=== PATIENT | female | born 1990 | race Caucasian/White ===

== ENCOUNTER 2022-04-16 08:01 | Outpatient (CLI) | payer BC, SELFPAY ==
--- NOTE | 2022-04-16 08:22 | CRLHL7_ITS ---
For Patients: As a result of the Century Cures Act, medical imaging exams and procedure reports are released immediately into your electronic medical record. You may view this report before your referring provider. If you have questions, please contact your health care provider. INDICATION: Hypertension, COVID positive in . COMPARISON: OB ultrasound 04/09/2022. TECHNIQUE: Real time villegas scale imaging of the fetus was performed without non-stress testing. FINDINGS: Sonographic imaging demonstrates a single living intrauterine gestation. The fetus demonstrates a regular cardiac rate of 128 beats per minute. The fetus has a cephalic orientation. The placenta lies posteriorly. The amniotic fluid volume appears normal with single deepest pocket measuring 5.0 cm (2/2). The fetus was active (2/2). The fetus demonstrated normal breathing movements (2/2). There was normal flexion and extension of the trunk and extremities (2/2). IMPRESSION: Normal biophysical profile score 8 out of 8. Dictated by Jacquie Cornelius MD @ 04/16/2022 5:50:00 PM (Electronically Signed)
== END 2022-04-16 08:02 | disposition home or self-care (01) ==
LOC: US 08:02
PROVIDERS: Visit Provider Obstetrics & Gynecology
DX: O10.919 Unspecified pre-existing hypertension complicating pregnancy, unspecified trimester (principal); Z3A.35 35 weeks gestation of pregnancy
CPT/HCPCS: 76819

== ENCOUNTER 2022-04-18 11:06 | Outpatient (CLI) | payer BC, SELFPAY ==
[2022-04-18 11:29] VITALS: BP 112/77; PULSE 80
[2022-04-18 11:30] VITALS: PULSE 75; RESP 18; TEMP 37; O2SAT 98
--- NOTE | 2022-04-18 16:19 | PC.OBNST ---
NST Note NST Note Start: 04/18/22 11:10 Freq: ONCE Status: Discharge Protocol: Document 04/18/22 12:00 UMAIR (Rec: 04/18/22 15:09 JRAlisia [id number]) NST Note 2 Para (# of births) 1 EDC 05/21/22 High Risk Factors High Blood Pressure - Preexisting Patient Presented with Complaint(s) of Contractions/cramping Reactive Yes Appropriate for Gestational Age Yes ELY Neumann RN Date 04/18/22 Reactive Yes Appropriate for Gestational Age Yes ELY Levy RN Date 04/18/22 OB NST charge Yes Provider Evaluation of EFM Strip: Reactive: [] Appropriate for Gestational Age: [] Comments: Dr. Mayers reviewed EFM strip prior to discharge
== END 2022-04-18 12:00 | disposition home or self-care (01) ==
LOC: OB CLI 11:07 → OB 11:41
PROVIDERS: Visit Provider Obstetrics & Gynecology
DX: O16.3 Unspecified maternal hypertension, third trimester (principal); O98.513 Other viral diseases complicating pregnancy, third trimester; U07.1 COVID-19; Z3A.35 35 weeks gestation of pregnancy
CPT/HCPCS: 59025; 99211; 99213

== ENCOUNTER 2022-04-23 08:05 | Outpatient (CLI) | payer BC, SELFPAY | END 2022-04-23 08:06 | disposition home or self-care (01) | LOC: US 08:06 | PROVIDERS: Visit Provider Obstetrics & Gynecology | DX: O10.913 Unspecified pre-existing hypertension complicating pregnancy, third trimester (principal); O98.513 Other viral diseases complicating pregnancy, third trimester; U07.1 COVID-19; Z3A.35 35 weeks gestation of pregnancy ==

== ENCOUNTER 2022-04-23 08:13 | Outpatient (CLI) | payer BC, SELFPAY ==
--- NOTE | 2022-04-23 08:15 | CRLHL7_ITS ---
For Patients: As a result of the Century Cures Act, medical imaging exams and procedure reports are released immediately into your electronic medical record. You may view this report before your referring provider. If you have questions, please contact your health care provider. INDICATION: CHRONIC HTN, POSITIVE COVID IN TECHNIQUE: Real time villegas scale imaging of the fetus was performed. COMPARISON: 04/16/2022 FINDINGS: Sonographic imaging demonstrates a single living intrauterine gestation. Fetus demonstrates a regular cardiac rate of 131 beats per minute. Fetus has a vertex position. The placenta lies posteriorly. Amniotic fluid volume appears normal and there is a single deepest pocket of 5.8 cm. The estimated weight is 2617gm which lies at the 29th %. On the prior OB ultrasound dated 04/02/2022 the estimated weight was at the 14th percentile. BPD 13th percentile. HC 13 percent. AC 50th percentile. FL 13th percentile. The fetus was active and demonstrated normal breathing movements. There was normal flexion and extension of the trunk and extremities. IMPRESSION: Normal biophysical profile score 8/8. Sonographic gestational age 35 weeks 0 days and a sonographic due date 05/28/2022. Sonographic age 1 week behind the clinical age. Estimated weight 29th percentile. Abdominal circumference 50th percentile. Dictated by Mike Benson MD @ 04/23/2022 9:17:56 AM (Electronically Signed)
== END 2022-04-23 08:14 | disposition home or self-care (01) ==
LOC: US 08:14
PROVIDERS: Visit Provider Obstetrics & Gynecology
DX: O10.913 Unspecified pre-existing hypertension complicating pregnancy, third trimester (principal); O98.513 Other viral diseases complicating pregnancy, third trimester; U07.1 COVID-19; Z3A.35 35 weeks gestation of pregnancy
CPT/HCPCS: 76816; 76819

== ENCOUNTER 2022-04-23 10:17 | Outpatient (CLI) | payer BC, SELFPAY ==
[2022-04-23 11:46] LABS: Alanine Aminotransferase* 11 U/L (4-35); Aspartate Amino Transferase* 16 U/L (12-35); Blood Urea Nitrogen* 8 mg/dL (5-24); Creatinine* 0.5 mg/dL (0.5-1.5); Estimated Glomerular Filt Rate 126.93
[2022-04-23 12:55] LABS: Creatinine Urine 26.5 mg/dL; Total Protein Urine 8 mg/dL
[2022-04-24 10:07] LABS: Strep B DNA Probe NEGATIVE (Negative)
== END 2022-04-23 10:18 | disposition home or self-care (01) ==
PROVIDERS: Visit Provider Obstetrics & Gynecology
DX: O10.913 Unspecified pre-existing hypertension complicating pregnancy, third trimester (principal); O98.513 Other viral diseases complicating pregnancy, third trimester; U07.1 COVID-19
CPT/HCPCS: 82565; 84156; 84450; 84460; 84520; 87081; 87653

== ENCOUNTER 2022-04-24 11:29 | Outpatient (CLI) | payer BC, SELFPAY ==
[2022-04-24 11:43] VITALS: PULSE 84; O2SAT 99
[2022-04-24 11:48] VITALS: RESP 16; TEMP 37.1
[2022-04-24 11:56] VITALS: BP 117/68; PULSE 81
[2022-04-24 12:05] VITALS: BP 122/70; PULSE 92
[2022-04-24] MEDS: BETAMETHASONE SOD PHOS/ACETATE 6 MG/ML ML 12 MG IM (12:06)
[2022-04-24 12:55] LABS: Total Protein Urine 16 mg/dL
[2022-04-24 12:56] LABS: Creatinine Urine 82.1 mg/dL
--- NOTE | 2022-04-24 14:00 | PC.OBNST ---
NST Note NST Note Start: 04/24/22 11:34 Freq: ONCE Status: Active Protocol: Document 04/24/22 12:25 MMB (Rec: 04/24/22 13:59 MMB [id number]) NST Note 2 Para (# of births) 1 EDC 05/21/22 High Risk Factors High Blood Pressure - Preexisting Patient Presented with Complaint(s) of Other Other Complaints Scheduled NST/BP check/ Betamethasone Reactive Yes Appropriate for Gestational Age Yes ELY Pineda RN Date 04/24/22 Reactive Yes Appropriate for Gestational Age Yes ELY Corrales RN Date 04/24/22 OB NST charge Yes Provider Evaluation of EFM Strip: Reactive: [] Appropriate for Gestational Age: [] Comments:
== END 2022-04-24 12:25 | disposition home or self-care (01) ==
LOC: OB CLI 11:31 → OB 11:37
PROVIDERS: Visit Provider Obstetrics & Gynecology
DX: O11.3 Pre-existing hypertension with pre-eclampsia, third trimester (principal); Z3A.36 36 weeks gestation of pregnancy
CPT/HCPCS: 59025; 84156; J0702

== ENCOUNTER 2022-04-29 16:00 | Inpatient (IN) | payer BC, SELFPAY ==
[2022-04-29] VITALS (15 sets, daily range): BP systolic 120–153; BP diastolic 66–86; PULSE 83–114; RESP 16–18; TEMP 36.6–36.7; O2SAT 96–98; BMI 33.3
--- NOTE | 2022-04-29 17:04 | W.PM.LDBA ---
Subjective History of Present Illness Narrative: Patient is being admitted to Labor and Delivery for IOL for Preeclampsia without severe features superimposed upon chronic hypertension. She is a 32 year old at weeks gestation. Her full history and physical was dictated by Dr. Hardy on 04/23/22. Please see this for details. 1. Preeclampsia without severe features superimposed upon chronic hypertension, on no medications *Continue to monitor BPs at home. * BP 146 / 82 on 02/04/22, but reports normal at home.? To return for BP check in clinic and bring her home monitor at 26 weeks.? Start labetalol for any persistent elevations.? --150s / 80s on 04/23/22.? Began labetalol 100 mg BID.? Prot:cr 0.3 today.? *Start weekly testing at 32 weeks *Growth US every 4 weeks: 28, 32, 36 weeks --28 weeks:? IMPRESSION:? EFW 34%. AC 50%. ODILIA 16.3. ? --32wks 03/26/22: Vtx, BPP 8/8, SDP 3.7cm. EFW: 1735gms, 3 lb 13 oz, 19%.? BPD 22%, HC 9%, AC 26%, FL 19%. --36 weeks:? Cephalic, normal fluid, EFW 29% with all growth parameters within normal ranges.? BPP 05/24. --IOL scheduled for 37 0/7 weeks with NDP.? --Betamethasone 04/23 and 04/24/22 ? 2. Hx of preeclampsia, IOL at 37 weeks, denies need for medication.? Already taking baby aspirin.? Baseline preeclampsia labs collected. ?-Baseline preeclampsia labs:? 10/13/21: hgb 11.2, plts 341K, BUN 9, creatinine 0.5, uric acid ? 3.3, AST 20, ALT 16. Urine P/C 0.30. 24Hr urine protein: 230mg. ?- Repeat HELLP labs 02/03/22:? All normal 3.? Hx of Depression & anxiety.? Stopped medication about 6 years ago, remains stable at this time. 4. Covid positive 12/22/21. Out of quarantine 01/01/22. No additional testing required beyond that for chronic HTN. OB - H&P: Exam Physical Exam: Vital signs: Pulse BP Pulse Ox 105 H 134/86 96 04/29/22 16:30 04/29/22 16:30 04/29/22 16:35 Constitutional: Constitutional: no acute distress Routine HEENT Exam: Head: Present normal inspection Eye: Present normal appearance Routine Neck Exam: Neck: Present full ROM Routine Cardiovascular Exam: Cardiovascular: RRR Routine Exam: Perineum Description: Normal Detailed Labor and Delivery Exam: Patient Gravid: yes Dilation (cm): 1 Effacement (%): 70 Cervix position: posterior Consistency: soft Contraction frequency (min): 5 (3-5) Tachysystole: No Contraction intensity: Mild Fetus (Single): Station: -3 Monitor Accelerations: Present Monitor Decelerations: None Analytical Chemist Variability: Moderate (11-25) (6-25) Routine Extremities Exam: Extremities: Present full ROM Routine Back/Spine/Pelvis Exam: Back/Spine: full ROM Routine Neurological Exam: Present alert and oriented X3 Routine Psychiatric Exam: Present normal affect OB - Problem Based A/P Additional Plan (1) with pre-existing hypertension: Status: Acute (2) Encounter for induction of labor: Status: Acute Plan at 36.6 weeks gestation? GBS negative? ?complicated by preeclampsia without severe features superimposed upon chronic hypertension. Blood pressure 134/86 on admit. ?? PLAN:? 1. Blood pressure monitoring per unit policy.? 2. Plan for cook catheter placement followed by low dose Pitocin with Dr. Hardy on last visit. Reviewed options with patient and she is agreeable to cook placement and Pitocin.?Cook catheter placed at 1700. Low dose pitocin to be started at 0030. 3. Candidate for analgesia of choice. Planning epidural.? 4. Monitor blood pressures. Consider repeating labs if blood pressures are elevated.? 5. Anticipate ? 6. Continuous monitoring and IV placement per unit protocols. Delivery/Labor/Induction Plan Plan: induction Induction method: Intracervical balloon catheter (with plan for low dose pitocin at 0030.)
[2022-04-29 18:24] LABS: SARS PCR* POSITIVE SARS-CoV-2 (Negative)
[2022-04-29 20:37] LABS: Hematocrit 37.1 % (33.0-51.0); Hemoglobin* 12.6 gm/dL (12.0-16.0); Mean Corpuscular HGB Conc 34 gm/dL (32-36); Mean Corpuscular Hemoglobin 31 pg (26-34); Mean Corpuscular Volume 91 fL (80-100); Platelet Count* 257 K/uL (140-440); Red Blood Count 4.09 m/uL (4.00-5.20); White Blood Count* 12.38 K/uL (4.50-11.00)
[2022-04-29 20:40] LABS: Slide Review Reflex No
[2022-04-29 21:00] LABS: Alanine Aminotransferase* 15 U/L (4-35); Aspartate Amino Transferase* 20 U/L (12-35); Blood Urea Nitrogen* 17 mg/dL (5-24); Creatinine* 0.5 mg/dL (0.5-1.5); Est. Creatinine Clearance* 126.57; Estimated Glomerular Filt Rate 127 ml/min
[2022-04-30] VITALS (55 sets, daily range): BP systolic 90–151; BP diastolic 51–85; PULSE 72–102; RESP 15–20; TEMP 36.4–36.8; O2SAT 90–100
[2022-04-30] MEDS: LACTATED RINGERS 1000 ML 1,000 ML 125 ML IV ×2 (00:20→07:50)
[2022-04-30] MEDS: OXYTOCIN 30 unit/500 ML in NS 30 UNIT/500 ML BAG IVPB (00:25)
[2022-04-30] MEDS: hydrOXYzine pamoate 25 MG CAPSULE 100 MG PO (01:10)
[2022-04-30 07:08] LABS: Hematocrit 39.8 % (33.0-51.0); Hemoglobin* 13.3 gm/dL (12.0-16.0); Mean Corpuscular HGB Conc 33 gm/dL (32-36); Mean Corpuscular Hemoglobin 30 pg (26-34); Mean Corpuscular Volume 91 fL (80-100); Platelet Count* 250 K/uL (140-440); Red Blood Count 4.39 m/uL (4.00-5.20); White Blood Count* 13.01 K/uL (4.50-11.00)
[2022-04-30 07:21] LABS: Slide Review Reflex No
[2022-04-30 07:26] LABS: Aspartate Amino Transferase* 18 U/L (12-35); Creatinine* 0.5 mg/dL (0.5-1.5); Est. Creatinine Clearance* 126.57; Estimated Glomerular Filt Rate 127 ml/min
[2022-04-30 07:27] LABS: Alanine Aminotransferase* 15 U/L (4-35); Blood Urea Nitrogen* 16 mg/dL (5-24)
[2022-04-30] MEDS: PHENYLEPHRINE 100 MCG/ML SYRINGE IVP (09:05)
[2022-04-30] MEDS: ROPIVACAINE 0.2% 100 ml 100 ML 12 MG EPIDURAL (09:06)
[2022-04-30] MEDS: LIDOCAINE 2% (PF) 5 ML VIAL EPIDURAL (09:09)
--- NOTE | 2022-04-30 09:28 | P.ANBPRC_ITS ---
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 Saw genetic counselor. Does not exercise- walks with stroller daily , uook-vl-celr mom, 1 son Master of social work From [place] Non-smoker Social drinker (4-5/week), none during No recreational drug use. Smoking Status: Never smoker Meds Home Medications and Allergies Home Medications Medication Instructions Recorded Confirmed Type Lactobacillus acidophilus 100 mg PO QDAY 04/16/22 04/29/22 History aspirin 81 mg chewable tablet 1 tab PO DAILY tab 04/16/22 04/29/22 History ferrous sulfate 142 mg (45 mg mg PO DAILY 04/16/22 04/23/22 History iron) tablet,extended release prenat.vits,manuela,ymf-vecm-cnbfe 1 tab PO QDAY 04/16/22 04/29/22 History Allergies Allergy/AdvReac Type Severity Reaction Status Date / Time Sulfa Antibiotics Allergy Intermediate Rash Uncoded 04/23/22 09:23 Results Labs Labs: Laboratory Results - last 24 hr 04/29/22 04/29/22 04/29/22 16:26 20:30 20:30 WBC 12.38 H RBC 4.09 Hgb 12.6 Hct 37.1 MCV 91 MCH 31 MCHC 34 Plt Count 257 BUN Creatinine Estimated Creat Clear Estimated GFR AST ALT SARS-CoV-2 (PCR) POSITIVE SARS-CoV-2 A Blood Type AB Positive Antibody Screen NEGATIVE 0704/30/22 04/30/22 20:30 06:55 06:55 WBC 13.01 H RBC 4.39 Hgb 13.3 Hct 39.8 MCV 91 MCH 30 MCHC 33 Plt Count 250 BUN 17 16 Creatinine 0.5 0.5 Estimated Creat Clear 126.57 126.57 Estimated GFR 127 127 AST 20 18 ALT 15 15 SARS-CoV-2 (PCR) Blood Type Antibody Screen Vital Signs Vital Signs: Last Vital Signs Temp 98.1 F 04/30/22 08:05 Pulse 101 H 04/30/22 09:22 Resp 20 04/30/22 06:25 BP 99/59 L 04/30/22 09:22 Pulse Ox 99 04/30/22 09:25 Weight: 83.96 kg Height: 157.48 cm Anesthesia Procedures Epidural Insertion Patient Location: OB Start Time: 08:40 Stop Time: 09:20 Start Date: 04/30/22 Stop Date: 04/30/22 Reason for Block: procedure for pain Patient Position: sitting Performed By: Prieto Anthony Preanesthetic Checklist: site marked, risks and benefits discussed, monitors and equipment checked, timeout performed and anesthesia consent Prep: chlorhexidine gluconate Monitoring: blood pressure monitoring, continuous pulse oximetry and heart rate Approach: midline Vertebral Space: lumbar (1-5) Epidural Technique: SEAN air Needle Type: Tuohy needle Injection Technique: single-shot Needle gauge: 17 Needle Insertion Depth (cm): 7 Catheter Type: multi-orifice Catheter at skin depth (cm): 12 Test Dose Result: negative and lidocaine 1.5% with epinephrine 1 to 200,000
--- NOTE | 2022-04-30 10:24 | PM.OBPRCVD ---
Procedure Procedure Done: Global Narrative: The patient is a 32 year-old G 2 P 1 now 2 admitted on 04/29/2022 at 36 and 6/7 weeks gestation for induction of labor due to chronic hypertension with superimposed mild preeclampsia. Cervical exam on admission was 1 cm/50 % effaced/-3 station with membranes intact in vertex presentation. Contractions were every 6-9 minutes. heart rate demonstrated baseline 130s bpm with moderate variability, positive accelerations, negative decelerations; a category 1 tracing. GBS negative. Her blood type is Rh positive. AROM occurred at approximately 9:30 a.m. on small amount of clear fluid. Labor Analgesia: Epidural Pitocin: Yes Labor onset: 04/30/2022 at 4:00 a.m. Complete: 04/30/2022 at 9:47 a.m. Pushin04/30/2022 at 9:55 a.m. heart tones during second stage were: 130s baseline with moderate variability and accelerations between contractions. Sporadic variable decelerations with contractions. Extended deceleration to the 80s when the vertex was . At 10:06 a.m. a viable male delivered in vertex direct OA presentation over intact perineum via spontaneous vaginal delivery. There was a tight nuchal cord that was clamped and cut at the perineum. The was placed on maternal abdomen and was noted to have low tone and minimal respiratory effort. The baby's mouth was bulb suctioned and infant taken to the warmer for stabilization which occurred prior to the 1 minute . weight: 5 lb 9 oz. 9 at 1 minute and 9 at 5 minutes. Shoulder dystocia: No. Nuchal cord: Yes: See above . Placenta delivered spontaneously and complete at 10:12 a.m. with a 3 vessel cord. Complications: None. Mother and were stable after delivery. Laceration(s): None. Quantitative blood loss: 50 mL. Sponge and needles counts are correct. Mother and were stable at the time of this note. Eleanor is planning on breast feeding. The infant's name is John.
[2022-04-30] MEDS: IBUPROFEN 600 MG TABLET PO (19:40)
[2022-05-01 01:08] VITALS: BP 134/83; PULSE 95; RESP 16; TEMP 36.8
[2022-05-01 01:15] VITALS: BP 116/78
[2022-05-01 04:49] VITALS: BP 139/82; PULSE 72; RESP 16; TEMP 36.6; O2SAT 98
[2022-05-01 06:54] LABS: Hemoglobin* 12.5 gm/dL (12.0-16.0)
[2022-05-01 08:50] VITALS: BP 135/86; PULSE 75; RESP 16; TEMP 36.7; O2SAT 100
--- NOTE | 2022-05-01 08:52 | P.OBPN_ITS ---
OB - PN:Subj Subjective Time Seen by Provider: 08:52 Date Seen: 05/01/22 Patient comments OB post-: no complaints and pain well controlled [place] infant status: doing well [place] feeding status: exclusively OB - PN: Obj Exam Physical Exam: Vital signs: Temp Pulse Resp BP Pulse Ox 97.8 F 72 16 139/82 98 05/01/22 04:49 05/01/22 04:49 05/01/22 04:49 05/01/22 04:49 05/01/22 04:49 Constitutional: Constitutional: no acute distress Routine Respiratory Exam: Comments: Normal respirations, no cough or wheeze. Routine Cardiovascular Exam: Comments: Regular rate, BP 130s/80s. Routine Neurological Exam: Neurological: Present alert, normal tone and normal speech Routine Psychiatric Exam: Psychiatric: Present normal affect, normal thought process and cooperative OB - PN: Obj Data Labs Labs: Laboratory Results - last 24 hr 05/01/22 06:45 Hgb 12.5 OB - PN: A/P Vaginal Delivery Assessment and Plan (1) with pre-existing hypertension: Problem details: cHTN diagnosed in , never previously known; treated with ASA 81 antepartum. Protein:creatinine ratio elevated at time of IOL. Status: Inactive Assessment and Plan: Inpatient SBP 116-139, DBP 68-84; labetalol not indicated (2) Encounter for induction of labor: Problem details: Cook catheter, Pitocin. Status: Inactive Plan 32yo para 2001, PPD 1 from IOL and vaginal of viable male at 37w0d GA. No laceration. Normal course. cHTN not requiring treatment. hgb 12.5. Son well; awaiting Peds evaluation today. Plan Plan: discharge home
[2022-05-01] MEDS: DOCUSATE SODIUM 100 MG CAPSULE PO (09:29)
--- NOTE | 2022-05-01 09:38 | P.DS_ITS ---
DS: Providers Provider Time Seen by Provider: 09:38 Date Seen: 05/01/22 Date of admission: 04/29/22 16:00 Primary care physician: Deedee Herzog MD Attending Physician on discharge: Carlos Mayers MD DS: Diagnosis Discharge Diagnosis (1) Lactating mother: Status: Acute Problem details: Breastfed first son; has breast pump. Met with bilingual sales consultant yesterday. latching well. (2) COVID-19 affecting childbirth: Status: Acute Problem details: Usual precautions. (3) Chronic hypertension complicating or reason for care during : Status: Inactive Problem details: With probable preeclampsia without severe features given her protein to creatinine ratio of 0.3 at IOL. (4) Encounter for induction of labor: Status: Inactive Problem details: Cook catheter, Pitocin. (5) with pre-existing hypertension: Status: Inactive Problem details: cHTN diagnosed in , never previously known; treated with ASA 81 antepartum. (6) Vaginal delivery: Status: Acute Problem details: No laceration. hgb 12.5. Exam Const: Vital Signs, click to edit/add: Vital Signs - 24 hr 04/30/22 09:40 04/30/22 09:43 04/30/22 10:05 Temperature Pulse Rate 83 90 89 Pulse Rate [Left P ulse Oximeter] Respiratory Rate Blood Pressure 119/56 L 119/58 L 139/69 Blood Pressure [Ri ght Arm] Pulse Oximetry 04/30/22 10:06 04/30/22 10:13 04/30/22 10:14 Temperature 97.6 F Pulse Rate 86 Pulse Rate [Left P ulse Oximeter] 86 Respiratory Rate 16 Blood Pressure 121/65 Blood Pressure [Ri ght Arm] 121/65 Pulse Oximetry 98 04/30/22 10:26 04/30/22 10:27 04/30/22 10:41 Temperature Pulse Rate 86 Pulse Rate [Left P ulse Oximeter] 86 83 Respiratory Rate 15 16 Blood Pressure 123/75 Blood Pressure [Ri ght Arm] 123/75 136/77 Pulse Oximetry 04/30/22 10:42 04/30/22 10:56 04/30/22 10:57 Temperature Pulse Rate 83 79 Pulse Rate [Left P ulse Oximeter] 79 Respiratory Rate 16 Blood Pressure 136/77 133/81 Blood Pressure [Ri ght Arm] 133/81 Pulse Oximetry 04/30/22 11:11 04/30/22 11:12 04/30/22 11:26 Temperature Pulse Rate 77 Pulse Rate [Left P ulse Oximeter] 77 75 Respiratory Rate 16 15 Blood Pressure 126/69 Blood Pressure [Ri ght Arm] 126/69 120/69 Pulse Oximetry 04/30/22 11:27 04/30/22 11:41 04/30/22 11:42 Temperature 98.3 F Pulse Rate 75 81 Pulse Rate [Left P ulse Oximeter] 81 Respiratory Rate 16 Blood Pressure 120/69 116/68 Blood Pressure [Ri ght Arm] 116/68 Pulse Oximetry 04/30/22 16:24 04/30/22 19:48 05/01/22 01:08 Temperature 98.1 F 97.9 F 98.2 F Pulse Rate Pulse Rate [Left P ulse Oximeter] 94 90 95 Respiratory Rate 16 16 16 Blood Pressure Blood Pressure [Ri ght Arm] 124/84 117/79 134/83 Pulse Oximetry 97 96 05/01/22 04:49 Temperature 97.8 F Pulse Rate Pulse Rate [Left P ulse Oximeter] 72 Respiratory Rate 16 Blood Pressure Blood Pressure [Ri ght Arm] 139/82 Pulse Oximetry 98 Documenting provider has reviewed patient's vital signs: yes Common normals: no apparent distress, healthy appearing, alert and well nourished General appearance: cooperative and comfortable Nutritional appearance: obese Resp: Common normals: normal respiratory effort and no use of accessory muscles Cardio: Common normals: regular rate Rate: regular rate GI: Inspection: normal to inspection Extremity: Common normals: normal to inspection Neuro: Common normals: CN's II-XII intact bilaterally Sensorium/orientation: alert Speech: speech normal Psych: Common normals: mental status grossly normal OB - DS: Summary Hospital Course Hospital Course: Eleanor is a 32 year old P 2001, delivered at 37w0d after IOL with Cook and Pitocin for cHTN with superimposed preeclampsia by P:C of 0.3. She was admitted to the Center on 04/29/22, and gave to a viable male John on 04.30.2022 with an uncomplicated vaginal delivery without laceration. the patient has done well. Hemoglobin 12.5. She is rubella immune. Tdap was given. No Covid symptoms. Gender: Male Discharge Plan: Home Status at Discharge Functional status at discharge: independent ambulation Overall status at discharge: patient is progressing back to baseline Time Spent with Patient Time attestation: Total time spent providing and/or coordinating discharge services: Time spent: Less than 30 minutes Discharge Plan Discharge Disposition: Home, Self-Care Date of Admission: 04/29/22 16:00 Attending Provider on Discharge: Carlos Mayers Primary Care Provider: Deedee Herzog Condition: Stable Anticipated Discharge Date/Time: 05/01/22 12:00 Discharge Medications: New docusate sodium 100 mg Capsule 100 mg PO DAILY Qty: 100 0RF ibuprofen 600 mg Tablet 600 mg PO Q6H PRN14 Days Qty: 30 0RF Continued prenat.vits,manuela,[id number] Tablet 1 tab PO QDAY 0RF Lactobacillus acidophilus Capsule 100 mg PO QDAY 0RF Held ferrous sulfate 142 mg (45 mg iron) tablet extended release PO DAILY 0RF Hold Instructions: Resume on 04/30/22. labetalol 100 mg tablet 100 mg PO BID Qty: 30 0RF Discontinued aspirin 81 mg tablet,chewable 1 tab PO DAILY 0RF Discharge Orders: Discharge Order (Routine); Ordered 05/01/22 Ordered By: Carlos Mayers Patient Education: Vaginal Delivery (DC) Activity Restrictions/Additional Instructions: Lifting Restrictions: None Do not drive while taking pain meds. Off Work or School for 6 weeks. Symptoms to report to doctor: -Bleeding that saturates more than one pad per hour ?-Passing clots larger than the size of a golf ball ?-Pain not relieved by prescribed medication ?-Fever above 100.4 degrees Fahrenheit ?-A foul vaginal odor ?-Difficulty in emotions, mood and functions ?-Thoughts of hurting yourself and/or ?-Painful, reddened area in your breast ?-Any drainage, redness or tenderness in your IV/epidural site ?-Severe headache that doesn't improve after taking medications ?-Changes in vision, including temporary loss of vision, blurred vision, and/or light sensitivity ?-Upper abdominal pain (usually under ribs on the right side) ?-Decrease in urination or painful, frequent urinating ?-Chest pain ?-Shortness of breath ?-Tenderness or pain with redness and/swelling in the calf(s) of your leg Follow Up with 2 weeks for an optional visit with any [facility] provider and in [facility] at [facility] for your 6 week exam/annual. consultation services are available to all mothers and babies for the first year after delivery.? To make an appointment, please call [phone]. Disposition: Home/Self Care She is requesting discharge home. Activity Level: Activity as Tolerated Activity Detail: Nothing vaginally for 6 weeks Discharge Diet: Regular Follow Up Appointments: Deedee Herzog MD [Primary Care Provider] - Forms: MyHealth Info Instructions
== END 2022-05-01 16:42 | disposition home or self-care (01) | DRG 560 ==
PROVIDERS: Obstetrics & Gynecology; Admitting Provider Advanced Practice Midwife; PCP Family Medicine; Visit Provider Advanced Practice Midwife
DX: O11.4 Pre-existing hypertension with pre-eclampsia, complicating childbirth (principal); O10.92 Unspecified pre-existing hypertension complicating childbirth; Z3A.36 36 weeks gestation of pregnancy; Z37.0 Single live birth; Z86.16 Personal history of COVID-19
CPT/HCPCS: 01967; 36415; 59200; 82565; 84450; 84460; 84520; 85018; 85027; 86850; 86900; 86901; 87635; 88307; A9270; C1726; J2370; J2795; J7120

== ENCOUNTER 2024-05-29 07:28 | Outpatient (CLI) | payer BC, SELFPAY ==
--- OUTSIDE RECORDS SUMMARY | 2024-05-31 12:13 | XMS_ITS | Clinical Summary ---
Author Organization [facility] Address [address] [place] [id number] Care Team Providers Care Sales And Catering Coordinator Name Role Phone No Ref-Primary, Physician Primary Care Provider Social History Tobacco Use Types Packs/Day Years Used Date Smoking Tobacco: Never Assessed Adolescent Education Answer Date Record ed Getting School Help Needed Not on file 07/08 Sex and Gender Information Value Date Recorded Sex Assigned at Not on file Gender Identity Not on file Sexual Orientation Not on file Plan of Treatment Not on file Care Teams Sales And Catering Coordinator Relationship Specialty Start Date End Date No Ref-Primary, Physician PCP - General 07/31/18
--- OUTSIDE RECORDS SUMMARY | 2024-05-31 12:13 | XMS_ITS | Referral Summary ---
Author Organization [facility] Address [address] [place] [id number] Care Team Providers Care Assembly Line Upholsterer Name Role Phone No Ref-Primary, Physician Primary [...] of Treatment Not on file Care Teams Assembly Line Upholsterer Relationship Specialty Start Date End Date No Ref-Primary, Physician PCP - General 07/31/18
--- OUTSIDE RECORDS SUMMARY | 2024-05-31 12:13 | XMS_ITS | Encounter Summary ---
Author Organization [facility] Address [address] [place] [id number] Care Team Providers Care Tack Welder Name Role Phone No Ref-Primary, Physician Primary Care Provider Reason for Referral * - Closed Specialty Diagnoses / Procedures Referred By Belle ross Referred To Contact Diagnoses related condition, antepartum Mathew, [place] [address] [place] [address] Referral ID Status Reason Start Date Expiration Date Visits Re quested Visits Authorized [id number] Closed 07/21/2018 07/21/2019 1 1 Comments [facility] Ancestry * - Closed Specialty Diagnoses / Procedures Referred By Belle ross Referred To Contact Diagnoses related condition, antepartum Mathew, [place] [address] [place] [address] Referral ID Status Reason Start Date Expiration Date Visits Re quested Visits Authorized [id number] Closed 07/21/2018 07/21/2019 1 1 Question Answer MFM Location [facility] 02/22/2019 Ultrasound NONE US PROC NONE MFM Issue Family history/concern *MUST request Genetic Counseling Genetic Counseling Consultation: Yes - [facility] Ancestry fax [phone], [facility] , Dr. Kayla Carmona Comments There is no height or weight on file to calculate BMI. >> Patient may proceed with recommendations for further testing as directed by the Maternal Medicine Specialist >> >> If requesting Echo: MFM will determine appropriate location for exam due to indication. >> If requesting Lung Maturity Amnio: If results indicate lung maturity, induction or C/S is recommended within 36 hours. Please schedule accordingly. Dear Patient: Please be aware that coverage of these services is subject to the terms and limitations of your health insurance plan. Call member services at your health plan with any benefit or coverage questions. Please bring the following to your appointment: >> Any x-rays, CTs or MRIs which have been performed. Contact the facility where they were done to arrange for strip picker prior to your scheduled appointment. Any new CT, MRI or other procedures ordered by your specialist must be performed at a [facility] or coordinated by your clinic's referral office. >> List of current medications >> This referral request >> Any documents/labs given to you for this referral Encounter Details Date Type Department Care Team (Late st Contact Info) Description 07/21/2018 Orders Only [facility] [place] [address] [place] [address] Kayla Carmona [facility] [address] [facility] [place] [address] related condition, antepartum (Primary Dx) Social History Tobacco Use Types Packs/Day Years Used Date Smoking Tobacco: Never Assessed Sex and Gender Information Value Date Recorded Sex Assigned at Not on file Gender Identity Not on file Sexual Orientation Not on file documented as of this encounter Plan of Treatment Scheduled Referrals Name Type Priority Associated Diagnoses Orde r Schedule [facility] REFERRAL- Referral Routine related condition, antepartum Ordered: 07/21/2018 [facility] Genetic Counseling Referral Routine related condition, antepartum 1 Occurrences starting 07/21/2018 until 07/22/2019 documented as of this encounter Visit Diagnoses Diagnosis related condition, antepartum- Primary documented in this encounter Care Teams Tack Welder Relationship Specialty Start Date End Date No Ref-Primary, Physician PCP - General 07/31/18 documented as of this encounter
== END 2024-05-29 07:29 | disposition home or self-care (01) ==
LOC: NFLDREF 05-31 12:12
PROVIDERS: PCP Family Medicine; Referring Provider Family Medicine; Visit Provider Family Medicine
DX: R03.0 Elevated blood-pressure reading, without diagnosis of hypertension (principal); R53.82 Chronic fatigue, unspecified; Z13.220 Encounter for screening for lipoid disorders; Z13.29 Encounter for screening for other suspected endocrine disorder
CPT/HCPCS: 80053; 80061; 84443

== ENCOUNTER 2025-06-12 07:45 | Outpatient (CLI) | payer BC, SELFPAY | END 2025-06-12 07:46 | disposition home or self-care (01) | LOC: NFLDREF 06-13 15:10 | PROVIDERS: PCP Family Medicine; Referring Provider Family Medicine; Visit Provider Family Medicine | DX: E78.5 Hyperlipidemia, unspecified (principal); R53.82 Chronic fatigue, unspecified; G47.9 Sleep disorder, unspecified; Z79.899 Other long term (current) drug therapy | CPT/HCPCS: 80053; 80061; 82607; 82728; 83540; 83550; 84443 ==